=== PATIENT | male | born 1965 | race Caucasian/White ===

== ENCOUNTER 2025-08-11 09:55 | Emergency (ER) | payer OTHER ==
[~2025-08-11 09:55] MED LIST: Rocuronium 100 MG/10 ML MDV ONE
[2025-08-11] MEDS ORDERED: Sodium Chloride 0.9% 10 ML Syringe FLUSH PRN (10:03)
[2025-08-11 10:05] LABS: BASOPHILS ABSOLUTE AUTO 0.05 K/uL (0.00-0.20); BASOPHILS PERCENT AUTO 0.3 % (0.0-2.0); EOSINOPHILS ABSOLUTE AUTO 0.28 K/uL (0.00-0.50); EOSINOPHILS PERCENT AUTO 1.8 % (0.0-5.0); IMMATURE GRAN ABSOLUTE AUTO 0.05 10^3/uL (0.00-0.04); IMMATURE GRAN PERCENT AUTO 0.3 % (0.0-0.4); LYMPHOCYTES ABSOLUTE AUTO 3.66 K/uL (0.50-3.50); LYMPHOCYTES PERCENT AUTO 23.4 % (10.0-50.0); MONOCYTES ABSOLUTE AUTO 1.84 K/uL (0.00-1.00); MONOCYTES PERCENT AUTO 11.8 % (2.0-14.0); NEUTROPHILS ABSOLUTE AUTO 9.76 K/uL (1.40-7.00); NEUTROPHILS PERCENT AUTO 62.4 % (45.0-80.0); PLATELET COUNT,PLT 400 K/uL (150-350); RED BLOOD CELL COUNT 5.19 M/uL (4.33-5.41); RED CELL DISTRIBUTION WIDTH 13.6 % (11.2-14.1); WHITE BLOOD CELL COUNT,WBC 15.6 K/uL (4.0-10.2)
[2025-08-11] MEDS ORDERED: Sodium Chloride 0.9% 10 ML Syringe FLUSH ONE (10:10)
[2025-08-11] MEDS ORDERED: Metoprolol Tartrate 5 MG/5 ML SDV ONE ×2 (10:21→11:27)
[2025-08-11 10:30] LABS: ALANINE AMINOTRANSFERASE,ALT 37 U/L (12-78); ASPARTATE AMNIOTRANSFERASE,AST 26 U/L (15-37); BILIRUBIN TOTAL 0.6 mg/dL (0.2-1.0); BLOOD UREA NITROGEN,BUN 21 mg/dL (7-18); CARBON DIOXIDE,CO2 29.0 mmol/L (21.0-32.0); CHLORIDE,CL 99 mmol/L (98-107); CREATININE 1.30 mg/dL (0.51-1.17); GLUCOSE RANDOM 119 mg/dL (70-99); POTASSIUM,K 3.9 mmol/L (3.5-5.1); PRO B-TYPE NATRIUR PEPT,BNPPRO 1219 pg/mL (0-125); PROTEIN TOTAL,TP 7.4 g/dL (6.4-8.2); SODIUM,NA 137 mmol/L (136-145)
[2025-08-11] MEDS ORDERED: Amiodarone 150 MG/3 ML SDV ONE (10:30)
[2025-08-11] MEDS ORDERED: Etomidate 2 MG/ML 10 ML SDV IVPUSH ONE (10:30)
[2025-08-11 10:33] LABS: ESTIMATED GFR 63 mL/min (>=60)
[2025-08-11 10:47] LABS: INR 1.0 (0.9-1.1); PTT,PARTIAL THROMBOPLSTIN TIME 26.1 SEC (23.8-34.4)
[2025-08-11] MEDS ORDERED: AMIODARONE IV ONE (10:57)
== END 2025-08-11 12:00 ==
LOC: LL.ED 09:55
DX: R00.0 Tachycardia, unspecified (principal); Z96.611 Presence of right artificial shoulder joint; Z88.0 Allergy status to penicillin
CPT/HCPCS: 36415; 80053; 83605; 83735; 83880; 84484; 85025; 85379; 85610; 85730; 92960; 93005; 93010; 96361; 96365; 96375; 99284; 99285-25; J0153; J0283; J0616; J3490; J7030